=== PATIENT | male | born 1960 | race Caucasian/White ===

== ENCOUNTER 2024-11-15 13:16 | Outpatient (CLI) | payer BC ==
[~2024-11-15 13:16] MED LIST: Iopamidol 370 76% 100 ML VIAL ONE
[2024-11-15 14:10] LABS: Estimated GFR - POC 84.0
== END 2024-11-15 13:17 | disposition home or self-care (01) ==
LOC: CSHCT 13:16
PROVIDERS: ATTEND Specialist
DX: R22.1 Localized swelling, mass and lump, neck (principal); D17.0 Benign lipomatous neoplasm of skin and subcutaneous tissue of head, face and neck; J32.2 Chronic ethmoidal sinusitis
CPT/HCPCS: 70491; 82565; Q9967